=== PATIENT | female | born 1945 | race Caucasian/White ===

== ENCOUNTER 2016-12-01 15:55 | Emergency (ER) | payer OTHER, MEDICARE ==
[~2016-12-01] VITALS: Ht 154.9 cm; Wt 59.0 kg
[2016-12-01 15:55] VITALS: BP_SYST 176
[~2016-12-01 15:55] MED LIST: ALPHAGANP BOTH EYES; AMLO5TAB4 PO; ASPI81TA2 PO; ATREYE1 EACHEYE; CHOL400C8 PO; CLOP75TA2 PO; DORZ10DR13 OP; FLUT16SP24 NS; GELATIN PO; HYDR12.585 PO; LATA2.5D6 OP; LEVO100T9 PO; LORATIDINE PO; MECL-97 PO; OMEG1CAP18 PO; [UNRECOGNIZED DRUG - CODE] PO; [UNRECOGNIZED DRUG - OTHER] PO
[2016-12-01] MEDS: DIPH-TET-PERTUS Vaccine 0.5 ML VIAL (ADACEL) IM ONE (16:31)
[2016-12-01] MEDS: LIDOCAINE/EPI 1% 1:100000 20 ML VIAL IJ ONE (16:47)
[2016-12-01] MEDS: BACITRACIN 1 GM OINT TP ONE (18:00)
[2016-12-01 19:00] VITALS: BP_SYST 131
[2016-12-01] MEDS: ACETAMINOPHEN 325 MG TABLET PO ONE (19:09)
[2016-12-01] MEDS: CEPHALEXIN 500 MG CAPSULE PO ONE (19:09)
== END 2016-12-01 19:00 | disposition home or self-care (01) ==
LOC: SED 15:55
DX: S01.01XA Laceration without foreign body of scalp, initial encounter (principal); G80.9 Cerebral palsy, unspecified; I10 Essential (primary) hypertension; Z79.82 Long term (current) use of aspirin; Z88.5 Allergy status to narcotic agent; Z88.8 Allergy status to other drugs, medicaments and biological substances
CPT/HCPCS: 70450-TC; 90715; 99284

== ENCOUNTER 2019-04-21 14:47 | Emergency (ER) | payer OTHER, MEDICARE ==
[~2019-04-21] VITALS: Ht 160 cm; Wt 50.3 kg
[~2019-04-21 14:47] MED LIST changes: +ASPI-1155 PO; -ASPI81TA2 PO; -LATA2.5D6 OP; +XALEYE OP
[2019-04-21 15:02] VITALS: BP_SYST 99
[2019-04-21 15:48] LABS: BASOPHILS % (AUTO) 0.5 % (0.0-2.0); EOSINOPHILS # (AUTO) 0.1 K/uL (0.0-0.4); EOSINOPHILS % (AUTO) 1.4 % (0.0-4.0); HEMATOCRIT 27.8 % (36-48); HEMOGLOBIN 9.2 g/dL (12.0-16.0); LYMPHOCYTES # (AUTO) 0.5 K/uL (1.0-5.5); LYMPHOCYTES % (AUTO) 10.5 % (20.5-51.5); MEAN CORPUSCULAR HEMOGLOBIN 31 pg (27-31); MEAN CORPUSCULAR HGB CONC 33 % (32-36); MEAN CORPUSCULAR VOLUME 94 fL (79.0-98.0); MONOCYTES # (AUTO) 0.9 K/uL (0.0-1.0); MONOCYTES % (AUTO) 18.4 % (1.7-9.3); NEUTROPHILS # (AUTO) 3.3 K/uL (1.8-7.7); NEUTROPHILS % (AUTO) 69.2 % (40.0-70.0); PLATELET COUNT (AUTO) 324 K/uL (130-430); RED BLOOD CELL COUNT(AUTO) 2.96 MIL/uL (4.2-6.2); RED CELL DISTRIBUTION WIDTH 14.5 % (9.0-15.0); WHITE BLOOD COUNT (AUTO) 4.8 K/uL (4.8-10.8)
[2019-04-21 16:08] LABS: ANION GAP 3 (5-15); CALCIUM 9.2 mg/dL (8.4-11.0); CHLORIDE 107 mmol/L (98-107); CREATININE 1.11 mg/dL (0.55-1.30); GLUCOSE 103 mg/dL (70-99); POTASSIUM 4.3 mmol/L (3.5-5.1); SODIUM SERUM 137 mmol/L (136-145); UREA NITROGEN, BLOOD 38 mg/dL (8-21)
[2019-04-21 16:12] LABS: ALANINE AMINOTRANSFERASE 14 U/L (12-78); ALBUMIN 2.6 g/dL (3.4-4.8); AMYLASE 38 U/L (0-100); ASPARTATE AMINOTRANSFERASE 13 U/L (10-37); LIPASE 41 U/L (73-393); TOTAL BILIRUBIN 0.3 mg/dL (0.0-1.0)
[2019-04-21 16:35] LABS: PROTHROMBIN TIME 10.4 SECS (9.5-12.5)
[2019-04-21 18:00] VITALS: BP_SYST 117
== END 2019-04-21 18:00 | disposition home or self-care (01) ==
LOC: SED 14:47
DX: N39.0 Urinary tract infection, site not specified (principal); R19.7 Diarrhea, unspecified; I10 Essential (primary) hypertension; Z86.79 Personal history of other diseases of the circulatory system; Z88.5 Allergy status to narcotic agent; Z79.899 Other long term (current) drug therapy
CPT/HCPCS: 36415; 80053; 82150-TC; 83605; 83690-TC; 85025; 85610-TC; 85730-TC; 99284

== ENCOUNTER 2022-05-12 17:09 | Inpatient (IN) | payer OTHER, MEDICARE ==
[~2022-05-12] VITALS: Ht 152.4 cm; Wt 54.4 kg
[~2022-05-12 17:09] MED LIST changes: -ALPHAGANP BOTH EYES; -AMLO5TAB4 PO; -ASPI-1155 PO; -ATREYE1 EACHEYE; -CHOL400C8 PO; -CLOP75TA2 PO; -DORZ10DR13 OP; -FLUT16SP24 NS; -GELATIN PO; -LORATIDINE PO; -MECL-97 PO; -OMEG1CAP18 PO; -XALEYE OP; -[UNRECOGNIZED DRUG - CODE] PO; -[UNRECOGNIZED DRUG - OTHER] PO
--- NOTE | 2022-05-12 17:09 | NUR ---
PATIENT PRESENTS TO ER FROM [facility] DUE TO AN EPISODE OF COFFE GROUND EMESIS. PATINET WAS BIBA. PATIENT IS ALERT AND ORIENTED TO NAME AND LOCATION, BUT DOES NOT KNOW THE CORRECT DATE. RESPIRATIONS ARE WNL AND SYMMETRICAL. PATIENT IS ON 4L FROM PARAMEDICS. OXYGEN APPLIED VIA NC. STOMACH IS SOFT AND ROUNDED, ESAU SIGN OF TENDERNESS UPON PALPATION CA PERCUSSION. PATIENT CAN MOVE UPPER EXTREMEITIES, BUT LEGS ARE WEAK. PARAMEDICS STATE HER L SIDED WEAKNESS IS NORMAL AND IS HER BASELINE.
--- NOTE | 2022-05-12 17:09 | NUR ---
ER at bedside examining patient.
--- NOTE | 2022-05-12 17:09 | NUR ---
PATIENT HAS 18 GAUGE IV THAT WAS PLACE IN THE FIELD.
[2022-05-12 17:13] VITALS: BP_SYST 108
--- NOTE | 2022-05-12 17:24 | NUR ---
Patient to ER bed 1 to gown for evaluation. Side rails up. Report given to CHRISTIANO JOLLY
[2022-05-12 18:23] LABS: HEMATOCRIT 26.3 % (36-48); MEAN CORPUSCULAR VOLUME 90 fL (79.0-98.0); PLATELET COUNT (AUTO) 334 K/uL (130-430); RED BLOOD CELL COUNT(AUTO) 2.92 MIL/uL (4.2-6.2); RED CELL DISTRIBUTION WIDTH 15.3 % (9.0-15.0); WHITE BLOOD COUNT (AUTO) 28.6 K/uL (4.8-10.8)
[2022-05-12 18:29] LABS: ANION GAP 13 (5-15); CHLORIDE 103 mmol/L (98-107); CREATININE 3.02 mg/dL (0.55-1.30); GLUCOSE 183 mg/dL (70-99); POTASSIUM 4.5 mmol/L (3.5-5.1)
[2022-05-12 18:35] LABS: ALANINE AMINOTRANSFERASE 17 U/L (12-78); ALBUMIN 0.9 g/dL (3.4-4.8); ASPARTATE AMINOTRANSFERASE 14 U/L (10-37); INR 1.1 (0.8-1.2); TOTAL BILIRUBIN 0.3 mg/dL (0.0-1.0)
[2022-05-12 18:57] LABS: CALCIUM 6.7 mg/dL (8.4-11.0); UREA NITROGEN, BLOOD 117 mg/dL (8-21)
[2022-05-12 19:00] VITALS: BP_SYST 136
[2022-05-12 19:07] LABS: BAND % (MANUAL) 13 % (0-6); LYMPHOCYTES % (MANUAL) 3 % (20-46); METAMYELOCYTES % 1 % (0-0); MONOCYTES % (MANUAL) 8 % (0-11)
[2022-05-12] MEDS ORDERED: CALCIUM GLUCONATE 2 GM in NS 100 ML IV ONE (19:45)
[2022-05-12] MEDS ORDERED: NACL 0.9% 1,000 ML IV ONE ×2 (19:45)
[2022-05-12] MEDS ORDERED: cefTRIAXone 1 GM IVPB PREMIX 50 ML IV ONE (19:45)
[2022-05-12] MEDS ORDERED: CALCIUM GLUCONATE 1 GM/10 ML VIAL ONE (19:47)
[2022-05-12 20:00] VITALS: BP_SYST 136
[2022-05-12] MEDS ORDERED: NOR10 PO (20:28)
[2022-05-12] MEDS ORDERED: ASPI-1155 PO (20:29)
[2022-05-12] MEDS ORDERED: BRI.2% LEFT EYE (20:30)
[2022-05-12] MEDS ORDERED: CEFU250T85 PO (20:31)
[2022-05-12] MEDS ORDERED: DORZ10DR9 LEFT EYE (20:32)
[2022-05-12] MEDS ORDERED: XALEYE LEFT EYE (20:32)
[2022-05-12] MEDS ORDERED: SYN50 PO (20:33)
[2022-05-12] MEDS ORDERED: LOSA50TA3 PO (20:34)
[2022-05-12] MEDS ORDERED: ASCO500T20 PO (20:34)
[2022-05-12 21:00] VITALS: BP_SYST 95
--- NOTE | 2022-05-12 21:08 | NUR ---
Pt noted with large amt of black soft stool. Dr. Fenton brought to bedside and ordered STAT emergency transfusion of 2 units PRBC. Pt cleaned and Kowalski inserted per MD order. Pt noted confused, unable to answer questions at this time.
--- NOTE | 2022-05-12 21:39 | NUR ---
Started 1st unit emergency PRBC, no reaction noted within 1st 15 minutes. Pt taken to ICU bed 2 with 2 RN's and cardiac cath technician, report given to Willow, all questions answered.
[2022-05-12 22:00] VITALS: BP_SYST 97
[2022-05-12 22:47] LABS: BILIRUBIN,URINE NEGATIVE (NEGATIVE); COLOR,URINE YELLOW (YELLOW); GLUCOSE,URINE NEGATIVE (NEGATIVE); KETONES,URINE TRACE (NEGATIVE); LEUKOCYTE ESTERASE ,URINE 3+ (NEGATIVE); NITRITE, URINE NEGATIVE (NEGATIVE); PH,URINE 5.5 (5.0-8.0); PROTEIN URINE TRACE (NEGATIVE); UROBILINOGEN,URINE 0.2 (0.2-1.0)
[2022-05-12 22:48] LABS: BLOOD, URINE TRACE (NEGATIVE); CLARITY/URINE SLIGHTLY CLOUDY (CLEAR)
[2022-05-12 22:57] LABS: BACTERIA,URINE MODERATE /HPF (None Seen); MUCUS,URINE 1+ /LPF (None Seen); WBC,URINE 50-80 /HPF (0-3)
[2022-05-12 23:00] VITALS: BP_SYST 115
[2022-05-13] VITALS (24 sets, daily range): BP systolic 58–133
[2022-05-13] MEDS: PANTOPRAZOLE SODIUM 40 MG/VIAL (PROTONIX) IVP SCH ×2 (03:02→08:39)
[2022-05-13] MEDS: D5/0.45 NS 1,000 ML IV SCH ×4 (03:02→20:39)
--- NOTE | 2022-05-13 04:29 | NUR ---
CONSULTATION PAGED/CALLED Reason for Consultation: UPPER GI BLEED Person Who was Notified: RICKEY Consulting Physician: DR. PALACIO Sheep Killer Specialty: GI Ordering Physician: DR. ANDERSON Reason for Consultation: RENAL FAILURE Person Who was Notified: RICKEY Consulting Physician: DR. GONZALEZ Sheep Killer Specialty: NEPHROLOGY Ordering Physician: DR. ANDERSON
[2022-05-13 07:21] LABS: ANION GAP 13 (5-15); CHLORIDE 106 mmol/L (98-107); CREATININE 2.55 mg/dL (0.55-1.30); GLUCOSE 166 mg/dL (70-99); POTASSIUM 4.2 mmol/L (3.5-5.1)
[2022-05-13 07:25] LABS: BASOPHILS % (AUTO) 0.2 % (0.0-2.0); EOSINOPHILS % (AUTO) 0.2 % (0.0-4.0); HEMATOCRIT 28.1 % (36-48); MEAN CORPUSCULAR VOLUME 88 fL (79.0-98.0); MONOCYTES # (AUTO) 0.7 K/uL (0.0-1.0); MONOCYTES % (AUTO) 2.7 % (1.7-9.3); NEUTROPHILS # (AUTO) 23.4 K/uL (1.8-7.7); PLATELET COUNT (AUTO) 356 K/uL (130-430); RED BLOOD CELL COUNT(AUTO) 3.21 MIL/uL (4.2-6.2); RED CELL DISTRIBUTION WIDTH 14.8 % (9.0-15.0); WHITE BLOOD COUNT (AUTO) 25.1 K/uL (4.8-10.8)
[2022-05-13] MEDS: LEVOTHYROXINE SODIUM 0.05 MG TABLET PO SCH (07:30)
--- NOTE | 2022-05-13 08:00 | NUR ---
KEIRY MACK REGISTERED NURSE IS IN CHARGE OF THIS PATIENT/PT HAS GI OLD BLOOD STOOL, STOOL IS BLACK, SMELLING OF MELENA/PT FOLLOWS COMMANDS BUT MOSTLY MOANS, WILL ANSWER QUESTIONS THOUGH//PT [id number] BOLUSES DUE TO SEPPSIS//AWAIT DECISION ON SCOPE/AWAI H/H RESULTS FROM AM//MW
[2022-05-13 08:12] LABS: NEUTROPHILS % (AUTO) 92.9 % (40.0-70.0)
[2022-05-13] MEDS ORDERED: NACL 0.9% 1,000 ML IV ONE (08:30)
[2022-05-13] MEDS: BRIMONIDINE TARTRATE 0.2% 5 mL EYE DROPS LEFT EYE SCH ×3 (08:36→20:38)
[2022-05-13] MEDS: cefTRIAXone 1 GM in D5W 50 ML IV SCH (08:39)
[2022-05-13 09:00] LABS: CALCIUM 6.2 mg/dL (8.4-11.0); UREA NITROGEN, BLOOD 133 mg/dL (8-21)
[2022-05-13] MEDS ORDERED: metroNIDAZOLE 500 mg/NS 100 ML IV ONE (09:00)
[2022-05-13] MEDS ORDERED: DIATR MEGLU/DIATRIZ SOD 30 ML SOLUTION PO ONE (09:36)
[2022-05-13] MEDS: DORZOLAMIDE 2% OPHTHALMIC SOLN 5ML OP SCH ×3 (09:49→20:39)
[2022-05-13] MEDS ORDERED: CALCIUM GLUCONATE 1 GM/10 ML VIAL ONE (11:02)
[2022-05-13] MEDS ORDERED: CALCIUM GLUCONATE 2 GM in NS 100 ML IV ONE (12:00)
--- NOTE | 2022-05-13 12:00 | NUR ---
PT RECIOEVING BOLUSES, MULTIPLE IV LINES STARTED AND PICC LINE ORDERED//PT STILL HAVING BLACK STOOLS THOUGH ONLY SMALL AMOUNT LATELY//ALBUM,IN GIVEN TO PROTECT BP/PT HGB NOT POSTED YET//PT VS STABLE BUT PT STILL HAS INCIDENCES OF RAPID AFIB//DR PALACIO HAS DECIDED TO EGD PT, CONSENT IN CHART//PROCEDURE TO START AT 130PM-CONSENT GIVEN BY PT AND HE WAS UPDATED//MW
[2022-05-13] MEDS ORDERED: SIMETHICONE 40 MG/0.6 ML ML ONE (12:59)
[2022-05-13] MEDS ORDERED: MEPERIDINE 100 MG INJ. 100 MG/ML VIAL ONE (13:00)
[2022-05-13] MEDS ORDERED: fentaNYL CITRATE/PF 100 MCG/2 ML AMP ONE (13:00)
[2022-05-13] MEDS ORDERED: MIDAZOLAM HCL 5 MG/5 ML VIAL ONE (13:01)
[2022-05-13] MEDS ORDERED: ALBUMIN HUMAN 25% 100 ML IV ONE ×2 (13:32→17:14)
[2022-05-13] MEDS ORDERED: METOCLOPRAMIDE HCL 10 MG/2 ML VIAL ONE (14:01)
[2022-05-13] MEDS: PANTOPRAZOLE SODIUM 40 MG in NS 50 ML IV SCH ×3 (14:12→21:03)
[2022-05-13 14:48] LABS: BASOPHILS % (AUTO) 0.2 % (0.0-2.0); EOSINOPHILS # (AUTO) 0.1 K/uL (0.0-0.4); EOSINOPHILS % (AUTO) 0.2 % (0.0-4.0); LYMPHOCYTES # (AUTO) 1.2 K/uL (1.0-5.5); LYMPHOCYTES % (AUTO) 4.4 % (20.5-51.5); MEAN CORPUSCULAR VOLUME 88 fL (79.0-98.0); MONOCYTES # (AUTO) 1.2 K/uL (0.0-1.0); MONOCYTES % (AUTO) 4.5 % (1.7-9.3); NEUTROPHILS # (AUTO) 24.9 K/uL (1.8-7.7); PLATELET COUNT (AUTO) 201 K/uL (130-430); RED BLOOD CELL COUNT(AUTO) 2.39 MIL/uL (4.2-6.2); RED CELL DISTRIBUTION WIDTH 15.1 % (9.0-15.0); WHITE BLOOD COUNT (AUTO) 27.5 K/uL (4.8-10.8)
[2022-05-13 15:29] LABS: NEUTROPHILS % (AUTO) 90.7 % (40.0-70.0)
[2022-05-13] MEDS: metroNIDAZOLE 500 mg/NS 100 ML IV SCH ×2 (16:10→21:03)
[2022-05-13] MEDS: NOREPINEPHRINE BITARTRATE 4 MG in D5W 246 ML IV PRN ×2 (16:13→23:07)
[2022-05-13] MEDS ORDERED: MORPHINE 2 MG/ML INJ. SYRINGE ONE (17:13)
[2022-05-13] MEDS ORDERED: METOPROLOL TARTRATE 5 MG/5 ML VIAL ONE (17:15)
[2022-05-13] MEDS: METOCLOPRAMIDE HCL 10 MG/2 ML VIAL IVP SCH ×2 (17:17→23:34)
[2022-05-13] MEDS ORDERED: NALOXONE HCL 0.4 MG/ML AMP (NARCAN) IVP PRN (17:30)
[2022-05-13] MEDS ORDERED: MORPHINE 2 MG/ML INJ. SYRINGE IVP ONE (17:30)
[2022-05-13] MEDS ORDERED: METOPROLOL TARTRATE 5 MG/5 ML VIAL IVP PRN (17:30)
[2022-05-13] MEDS ORDERED: ALBUMIN HUMAN 25% 100 ML IV SCH (17:45)
--- NOTE | 2022-05-13 18:00 | NUR ---
1400 RECIEVED HGB RESULTS AND NEW CBC ORDERED-HGNB 30, HCT 10 FROM 5AM=SERIAL CBCS ORDERED Q6-PT STARTED ON LEVO, BOLUSES, ALBUMIN CONTINUE//MW
--- NOTE | 2022-05-13 18:00 | NUR ---
PT BP STABLE OFF LEVOPHED, PT STILL A AND O X2, WAS HERE, LEFT AFTER PT RAPID AFIB GOT CONTROLLED AT 5PM/PT STOOLS SMALL NOW, PER PREPARED TO CONSENT FOR ANY PROCEDURE//PT APPEARS IN ZERO DISTRESS//MW
[2022-05-13] MEDS: ALBUMIN HUMAN 25% 100 ML IV SCH (20:38)
[2022-05-13] MEDS: LATANOPROST 2.5 ML DROPS (XALATAN) LEFT EYE SCH (20:38)
[2022-05-14] VITALS (25 sets, daily range): BP systolic 95–147
[2022-05-14] MEDS: ALBUMIN HUMAN 25% 100 ML IV SCH ×2 (01:14→05:35)
[2022-05-14] MEDS: D5/0.45 NS 1,000 ML IV SCH ×4 (02:53→22:59)
[2022-05-14] MEDS: PANTOPRAZOLE SODIUM 40 MG in NS 50 ML IV SCH ×5 (02:53→22:58)
[2022-05-14] MEDS: metroNIDAZOLE 500 mg/NS 100 ML IV SCH ×3 (05:35→21:17)
[2022-05-14] MEDS: METOCLOPRAMIDE HCL 10 MG/2 ML VIAL IVP SCH ×4 (05:37→23:19)
--- NOTE | 2022-05-14 06:23 | NUR ---
CONSULTATION PAGED PRIORITY: ROUTINE REASON FOR CONSULTATION?:BLEEDING STOMACH ULCER WAS CONSULT CALLED:Y PERSON WHO WAS NOTIFIED:ISAÍAS CONSULTING PHYSICIAN:LEATHA SO WET MACHINE OPERATOR SPECIALTY:SURGEON WET MACHINE OPERATOR PHONE NUMBER:[phone]
[2022-05-14] MEDS: LEVOTHYROXINE SODIUM 0.05 MG TABLET PO SCH (06:58)
--- NOTE | 2022-05-14 08:00 | NUR ---
Received patient from NOC RN and discussed various tasks that need to be accomplished this AM. Patient continues to moan constantly and the only response that she gives is when asked if she is in pain, she says yes. RN rounded with Drs. Gray and Adriana this morning and tasks ordered were received and implemented as directed by MDs.
[2022-05-14] MEDS: cefTRIAXone 1 GM in D5W 50 ML IV SCH (08:27)
[2022-05-14] MEDS: DORZOLAMIDE 2% OPHTHALMIC SOLN 5ML OP SCH ×3 (08:28→21:17)
[2022-05-14] MEDS: LATANOPROST 2.5 ML DROPS (XALATAN) LEFT EYE SCH (08:32)
[2022-05-14] MEDS: BRIMONIDINE TARTRATE 0.2% 5 mL EYE DROPS LEFT EYE SCH ×3 (08:33→21:17)
--- NOTE | 2022-05-14 10:00 | NUR ---
Spoke with of patient and obtained consent for hospital records from [facility], consent for PICC line (reviewed again with and kiln charger), and EGD consented again for tomorrow. Called PICC RN Roberto and advised that consent was obtained; he indicated that he would come in and insert PICC today.
[2022-05-14 10:48] LABS: HEMATOCRIT 23.6 % (36-48); MEAN CORPUSCULAR VOLUME 86 fL (79.0-98.0); PLATELET COUNT (AUTO) 128 K/uL (130-430); RED BLOOD CELL COUNT(AUTO) 2.76 MIL/uL (4.2-6.2); RED CELL DISTRIBUTION WIDTH 14.9 % (9.0-15.0); WHITE BLOOD COUNT (AUTO) 17.1 K/uL (4.8-10.8)
[2022-05-14 10:54] LABS: ANION GAP 16 (5-15); CHLORIDE 109 mmol/L (98-107); CREATININE 1.93 mg/dL (0.55-1.30); GLUCOSE 127 mg/dL (70-99); POTASSIUM 3.3 mmol/L (3.5-5.1)
--- NOTE | 2022-05-14 12:00 | NUR ---
SPoke with Dr. Wright again; he was concerned that labs where not completed at this time. Contacted laundry laborer and blopo was draw and labs were taken right away. Patient has also been to CT scanner for CT of abdomen and Dr. Wright was made aware that exam was completed.
[2022-05-14 12:05] LABS: CALCIUM 5.8 mg/dL (8.4-11.0)
[2022-05-14 12:06] LABS: ALANINE AMINOTRANSFERASE 9 U/L (12-78); ASPARTATE AMINOTRANSFERASE 8 U/L (10-37); TOTAL BILIRUBIN 0.5 mg/dL (0.0-1.0); UREA NITROGEN, BLOOD 121 mg/dL (8-21)
[2022-05-14] MEDS ORDERED: CALCIUM GLUCONATE 1 GM/10 ML VIAL ONE (13:21)
[2022-05-14] MEDS ORDERED: CALCIUM GLUCONATE 2 GM in NS 100 ML IV ONE (13:30)
--- NOTE | 2022-05-14 14:00 | NUR ---
Spoke to Drs. Gray and Adriana regarding critical labs. Advised of Ca, BUN, CR, H and H, WBC and potassium. Order for Ca gluconate started and VS beginning to normalize. Otherwise, no sign or symptoms of acute distress or FLACC signs of pain at this time.
[2022-05-14 14:51] LABS: LIPASE 53 U/L (73-393); THYROID STIMULATING HORMONE 2.23 uIu/mL (0.36-3.74)
[2022-05-14 16:26] LABS: BAND % (MANUAL) 13 % (0-6); BASOPHILS % (MANUAL) 0 % (0-2); EOSINOPHILS % (MANUAL) 0 % (0-7); LYMPHOCYTES % (MANUAL) 11 % (20-46); METAMYELOCYTES % 1 % (0-0); MONOCYTES % (MANUAL) 3 % (0-11); MYELOCYTES % 1 % (0-0)
--- NOTE | 2022-05-14 16:27 | NUR ---
CONSULTATION PAGED PRIORITY: ROUTINE REASON FOR CONSULTATION?:STOMACH ULCER WAS CONSULT CALLED:ZACARIAS PERSON WHO WAS NOTIFIED:ANNABELLE CONSULTING PHYSICIAN:INDU TRIANA GEAR KEEPER SPECIALTY:SURGEON GEAR KEEPER PHONE NUMBER:[phone]
[2022-05-14 16:49] LABS: MEAN CORPUSCULAR VOLUME 87 fL (79.0-98.0); PLATELET COUNT (AUTO) 133 K/uL (130-430); RED BLOOD CELL COUNT(AUTO) 2.41 MIL/uL (4.2-6.2); RED CELL DISTRIBUTION WIDTH 15.4 % (9.0-15.0); WHITE BLOOD COUNT (AUTO) 20.3 K/uL (4.8-10.8)
--- NOTE | 2022-05-14 16:49 | NUR ---
CONSULTATION PAGED PRIORITY: ROUTINE REASON FOR CONSULTATION?:SEPSIS WAS CONSULT CALLED:ZACARIAS PERSON WHO WAS NOTIFIED:SARKIS CONSULTING PHYSICIAN:EVER FIGUEROA FISH TENDER SPECIALTY:INFECTIOUS DISEASE FISH TENDER PHONE NUMBER:[phone]
[2022-05-14 17:12] LABS: HEMATOCRIT 20.9 % (36-48)
--- NOTE | 2022-05-14 19:15 | NUR ---
Opening notes Received report from endorsing morning shift Sanaz for continuity of care. Patient is lying in bed with IVF D5 1/2 NS @ 150 mL/hr and protonix drip @ 10 mL/hr. Patient's vital signs blood pressure 95/33, heart rate 96, respirations 16, and SPO2 100% on nasal cannula 2L. Kowalski catheter is in place, draining to gravity. Bed is locked and in lowest position, call light button within reach, fall and safety precautions is in place.
[2022-05-15] VITALS (18 sets, daily range): BP systolic 85–148
[2022-05-15 00:21] LABS: BAND % (MANUAL) 22 % (0-6); EOSINOPHILS % (MANUAL) 3 % (0-7); LYMPHOCYTES % (MANUAL) 3 % (20-46); METAMYELOCYTES % 2 % (0-0); MONOCYTES % (MANUAL) 3 % (0-11); MYELOCYTES % 1 % (0-0)
[2022-05-15] MEDS ORDERED: NOREPINEPHRINE 4 MG/4 ML VIAL IV ONE ×4 (00:29→11:43)
[2022-05-15] MEDS: NOREPINEPHRINE BITARTRATE 4 MG in D5W 246 ML IV PRN (00:29)
[2022-05-15] MEDS: PANTOPRAZOLE SODIUM 40 MG in NS 50 ML IV SCH ×4 (04:04→20:42)
[2022-05-15] MEDS: D5/0.45 NS 1,000 ML IV SCH ×3 (05:43→21:03)
[2022-05-15] MEDS: metroNIDAZOLE 500 mg/NS 100 ML IV SCH ×3 (05:43→21:33)
[2022-05-15] MEDS: METOCLOPRAMIDE HCL 10 MG/2 ML VIAL IVP SCH ×4 (05:43→23:59)
[2022-05-15] MEDS: LEVOTHYROXINE SODIUM 0.05 MG TABLET PO SCH (06:41)
--- NOTE | 2022-05-15 07:30 | NUR ---
Report received from outgoing RN. I immediately dispatched Embermy tech to get hold of Michael Sanford, the assistant golf professional surgeon. I was informed that DR Valencia was not called last night. Dr. Sanford is aware and will see patient shortly.
[2022-05-15] MEDS ORDERED: fentaNYL CITRATE/PF 100 MCG/2 ML AMP ONE (07:52)
[2022-05-15] MEDS ORDERED: MIDAZOLAM HCL 5 MG/5 ML VIAL ONE (07:52)
[2022-05-15] MEDS ORDERED: SIMETHICONE 40 MG/0.6 ML ML ONE (07:52)
[2022-05-15] MEDS ORDERED: OCTREOTIDE ACETATE 50 MCG in NS 50 ML IV ONE (08:30)
[2022-05-15] MEDS ORDERED: PHENYLEPHRINE HCL 100 MG in NS 240 ML IV PRN (08:45)
[2022-05-15] MEDS: BRIMONIDINE TARTRATE 0.2% 5 mL EYE DROPS LEFT EYE SCH ×3 (09:00→20:44)
--- NOTE | 2022-05-15 09:30 | NUR ---
Reported to Dr Powers the critical ABG. Orders noted and carried out.
[2022-05-15] MEDS ORDERED: SODIUM BICARBONATE 8.4% JECT 50 MEQ/50 ML SYRINGE IVP ONE (10:30)
[2022-05-15 10:47] LABS: BASOPHILS # (AUTO) 0.1 K/uL (0.0-0.2); BASOPHILS % (AUTO) 0.4 % (0.0-2.0); EOSINOPHILS % (AUTO) 0.2 % (0.0-4.0); LYMPHOCYTES % (AUTO) 6.1 % (20.5-51.5); MEAN CORPUSCULAR VOLUME 90 fL (79.0-98.0); MONOCYTES # (AUTO) 0.2 K/uL (0.0-1.0); MONOCYTES % (AUTO) 1.1 % (1.7-9.3); NEUTROPHILS # (AUTO) 15.8 K/uL (1.8-7.7); NEUTROPHILS % (AUTO) 92.2 % (40.0-70.0); PLATELET COUNT (AUTO) 57 K/uL (130-430); RED BLOOD CELL COUNT(AUTO) 2.04 MIL/uL (4.2-6.2); RED CELL DISTRIBUTION WIDTH 14.7 % (9.0-15.0); WHITE BLOOD COUNT (AUTO) 17.1 K/uL (4.8-10.8)
[2022-05-15] MEDS ORDERED: cefTRIAXone 1 GM IVPB PREMIX 50 ML IV SCH (11:00)
[2022-05-15] MEDS: SODIUM BICARBONATE 8.4% JECT 150 MEQ in D5W 1,000 ML IVP SCH ×2 (11:30→20:43)
[2022-05-15 11:41] LABS: HEMATOCRIT 18.3 % (36-48)
[2022-05-15 12:14] LABS: INR 2.5 (0.8-1.2); PROTHROMBIN TIME 23.8 SECS (9.5-12.5)
[2022-05-15] MEDS ORDERED: ALBUMIN HUMAN 25% 200 ML IV ONE ×2 (12:23→12:30)
[2022-05-15] MEDS ORDERED: NACL 0.9% 1,000 ML IV ONE (12:30)
--- NOTE | 2022-05-15 14:47 | NUR ---
1335 PULLED ET TUBE FROM 24CM TO 22 CM. NIKKIE JUNG HEARD, VOLUMES ACHIEVED. RN AWARE. Addendum: 05/15/22 at 1448 by Ann Parham RT Amended: Links added.
[2022-05-15 15:32] LABS: EOSINOPHILS % (AUTO) 0.1 % (0.0-4.0); LYMPHOCYTES # (AUTO) 0.4 K/uL (1.0-5.5); MONOCYTES # (AUTO) 0.5 K/uL (0.0-1.0); NEUTROPHILS # (AUTO) 12.2 K/uL (1.8-7.7); WHITE BLOOD COUNT (AUTO) 13.1 K/uL (4.8-10.8)
[2022-05-15 15:41] LABS: BASOPHILS % (AUTO) 0.2 % (0.0-2.0); LYMPHOCYTES % (AUTO) 2.7 % (20.5-51.5); MEAN CORPUSCULAR VOLUME 91 fL (79.0-98.0)
--- NOTE | 2022-05-15 15:57 | NUR ---
0810 ASSISTED IN CODE BLUE AND INTUBATING PT. CO2 COLOR NIKKIE MANCIA PT PLACED ON VENT PER DR. MO. Addendum: 05/15/22 at 1558 by Ann Parham RT Amended: Links added.
[2022-05-15 16:00] LABS: FIBRINOGEN 71 mg/dL (200-400)
[2022-05-15 16:15] LABS: RED BLOOD CELL COUNT(AUTO) 1.16 MIL/uL (4.2-6.2)
[2022-05-15 16:18] LABS: HEMATOCRIT 10.5 % (36-48); PLATELET COUNT (AUTO) 31 K/uL (130-430)
[2022-05-15] MEDS: OCTREOTIDE ACETATE 500 MCG in NS 99.5 ML IV SCH (16:26)
[2022-05-15] MEDS: DORZOLAMIDE 2% OPHTHALMIC SOLN 5ML OP SCH ×3 (16:31→20:44)
[2022-05-15] MEDS: PIPERACILLIN/TAZO 2.25G/DEX-IS 50 ML IV SCH ×3 (16:33→23:59)
[2022-05-15] MEDS: LATANOPROST 2.5 ML DROPS (XALATAN) LEFT EYE SCH (16:37)
--- NOTE | 2022-05-15 16:37 | NUR ---
NOTIFIED BY LAB OF CRITICAL HCT AT 10.5 AND PLT OF 31. INFORMED MATA JETT AND PRIMARY RN GEORGINA.
[2022-05-15] MEDS ORDERED: FUROSEMIDE 20 MG/2 ML VIAL IVP ONE (19:30)
--- NOTE | 2022-05-15 19:45 | NUR ---
Received report from PM shift RN, and assumed patient care.
--- NOTE | 2022-05-15 20:00 | NUR ---
Patient's axillary temperature reads 93F and temporal reads 95F, warming measures are applied on patient, and will recheck temperature throughout the shift. No other complications noted at the moment, will reinforce if needed throughout the shift.
[2022-05-15] MEDS: VASOPRESSIN 20 UNITS in NS 99 ML IV PRN (20:42)
[2022-05-15] MEDS ORDERED: VASOPRESSIN 20 UNITS/ML VIAL IV ONE (20:43)
--- NOTE | 2022-05-15 21:30 | NUR ---
Performed CHG bath on patient, changed linens, and patient was able to tolerate the changes, no complications noted during the process. Will reinforce if needed throughout the shift.
--- NOTE | 2022-05-15 22:15 | NUR ---
Spoke to Mary Jo, from lab regarding updates about patient's blood order, no blood orders ready at the moment, and will call back to inform about readiness of the blood product. director child abuse therapy is aware, no complications noted at the moment. Will reinforce if needed throughout the shift.
[2022-05-15] MEDS: NOREPINEPHRINE BITARTRATE 8 MG in D5W 242 ML IV PRN (22:41)
--- NOTE | 2022-05-15 23:52 | NUR ---
Received critical lab result (please see EMR for further details), will inform MD about results GEOVANNI. No additional orders noted at the moment.
[2022-05-16] VITALS (32 sets, daily range): BP systolic 87–176
--- NOTE | 2022-05-16 00:20 | NUR ---
Spoke to Dr. Powers about the critical lab results of Hgb, MD is aware of patient ongoing with blood administration at the moment, and will get another lab value post blood transfusions. No additional orders noted at the moment, and provided nursing updates about current drips, will reinforce if needed throughout the shift.
[2022-05-16] MEDS: D5/0.45 NS 1,000 ML IV SCH ×3 (00:56→15:16)
[2022-05-16] MEDS: VASOPRESSIN 20 UNITS in NS 99 ML IV PRN ×2 (02:04→14:41)
[2022-05-16] MEDS ORDERED: VASOPRESSIN 20 UNITS/ML VIAL IV ONE (02:06)
[2022-05-16] MEDS: NOREPINEPHRINE BITARTRATE 8 MG in D5W 242 ML IV PRN (02:51)
--- NOTE | 2022-05-16 03:00 | NUR ---
Patient had a medium loose dark melena bowel movement, changed patient's linens, and tolerated the big turns and clean. No additional complications noted at the moment, will reinforce if needed throughout the shift.
[2022-05-16] MEDS: OCTREOTIDE ACETATE 500 MCG in NS 99.5 ML IV SCH (04:01)
[2022-05-16] MEDS: PANTOPRAZOLE SODIUM 40 MG in NS 50 ML IV SCH ×6 (04:14→20:26)
[2022-05-16] MEDS: SODIUM BICARBONATE 8.4% JECT 150 MEQ in D5W 1,000 ML IVP SCH ×2 (04:57→15:16)
[2022-05-16] MEDS: metroNIDAZOLE 500 mg/NS 100 ML IV SCH ×3 (05:52→21:50)
[2022-05-16] MEDS: PIPERACILLIN/TAZO 2.25G/DEX-IS 50 ML IV SCH (05:52)
[2022-05-16] MEDS: METOCLOPRAMIDE HCL 10 MG/2 ML VIAL IVP SCH ×3 (06:00→18:29)
--- NOTE | 2022-05-16 06:00 | NUR ---
Dr. Sanford called for condition updates, MD is aware of patient currently being transfused with PRBCs 3/4 at the moment, and pending platelet transfusion. No additional orders noted at the moment, MD is aware of most current lab values and will reinforce if needed throughout the shift.
[2022-05-16] MEDS: LEVOTHYROXINE SODIUM 0.05 MG TABLET PO SCH (06:14)
[2022-05-16 06:38] LABS: PROTHROMBIN TIME 19.7 SECS (9.5-12.5)
[2022-05-16 07:15] LABS: ALBUMIN 2.1 g/dL (3.4-4.8); ANION GAP 14 (5-15); CHLORIDE 102 mmol/L (98-107); CREATININE 2.18 mg/dL (0.55-1.30); TOTAL BILIRUBIN 0.5 mg/dL (0.0-1.0); UREA NITROGEN, BLOOD 91 mg/dL (8-21)
--- NOTE | 2022-05-16 08:30 | NUR ---
received critical lab values from nathan stated g/c=402, calcium 4.6, bun 91, creat=2.18.
[2022-05-16 08:37] LABS: ASPARTATE AMINOTRANSFERASE 87 U/L (10-37); CALCIUM < 5.0 mg/dL (8.4-11.0); GLUCOSE 402 mg/dL (70-99)
[2022-05-16 08:48] LABS: BASOPHILS % (AUTO) 0.1 % (0.0-2.0); EOSINOPHILS % (AUTO) 0.1 % (0.0-4.0); LYMPHOCYTES # (AUTO) 0.3 K/uL (1.0-5.5); MEAN CORPUSCULAR VOLUME 83 fL (79.0-98.0); MONOCYTES # (AUTO) 0.2 K/uL (0.0-1.0); MONOCYTES % (AUTO) 1.2 % (1.7-9.3); NEUTROPHILS # (AUTO) 13.6 K/uL (1.8-7.7); RED BLOOD CELL COUNT(AUTO) 2.58 MIL/uL (4.2-6.2); RED CELL DISTRIBUTION WIDTH 16.4 % (9.0-15.0); WHITE BLOOD COUNT (AUTO) 14.1 K/uL (4.8-10.8)
[2022-05-16 09:12] LABS: ALANINE AMINOTRANSFERASE 36 U/L (12-78)
--- NOTE | 2022-05-16 09:30 | NUR ---
called Dr Gutiérrez to report critical labs spoke with Nettie from exchange stated she will verbalized message to for call back.
[2022-05-16 09:41] LABS: HEMATOCRIT 21.5 % (36-48); PLATELET COUNT (AUTO) 44 K/uL (130-430)
[2022-05-16 09:43] LABS: NEUTROPHILS % (AUTO) 96.6 % (40.0-70.0)
[2022-05-16] MEDS ORDERED: PANTOPRAZOLE SODIUM 40 MG/VIAL (PROTONIX) ONE (10:18)
[2022-05-16] MEDS: BRIMONIDINE TARTRATE 0.2% 5 mL EYE DROPS LEFT EYE SCH ×3 (10:20→20:27)
[2022-05-16] MEDS: DORZOLAMIDE 2% OPHTHALMIC SOLN 5ML OP SCH ×3 (10:21→20:27)
--- NOTE | 2022-05-16 12:00 | NUR ---
spoke with Dr Dhillon to give update on pt. reported critical values to him stated to call primary dr to get new orders for pt.
--- NOTE | 2022-05-16 12:10 | NUR ---
RT NOTES Dr Powers roundprakash now, made aware of pt's PIP in the mid 30s. stated "its ok, with pt's current condition, there maybe some edema going on".
[2022-05-16] MEDS ORDERED: DEXTROSE 50% JECT 50 ML DISP.SYRIN IVP PRN (12:15)
[2022-05-16] MEDS ORDERED: D5W 1,000 ML IV PRN (12:15)
[2022-05-16] MEDS ORDERED: GLUCOSE (DEXTROSE) ORAL GEL -Adults PO PRN (12:15)
[2022-05-16 12:17] LABS: BASOPHILS % (MANUAL) 0 % (0-2)
[2022-05-16] MEDS ORDERED: CEFEPIME 2 GM in D5W 100 ML IV SCH (13:00)
[2022-05-16] MEDS: CEFEPIME 2 GM in NS 100 ML IV SCH (13:32)
[2022-05-16] MEDS ORDERED: CALCIUM GLUCONATE 1 GM in NS 100 ML IV ONE (14:00)
[2022-05-16] MEDS: KCL 20 mEq in 100 mL (PREMIX) 100 ML IV SCH ×2 (14:30→17:28)
[2022-05-16] MEDS ORDERED: *TPN PER PHARMACY XX PRN (15:00)
[2022-05-16] MEDS: INSULIN REGULAR, HUMAN 100 UNITS/ML, 3 ML VIAL (humuLIN R) SUBCUT PRN (15:59)
[2022-05-16] MEDS ORDERED: CALCIUM CHLORIDE 1 GM in NS 100 ML IV ONE (16:00)
[2022-05-16] MEDS ORDERED: CALCIUM GLUCONATE 1 GM/10 ML VIAL ONE (17:30)
[2022-05-16 19:01] LABS: HEMATOCRIT 36.1 % (36-48)
--- NOTE | 2022-05-16 19:10 | NUR ---
Received report from SHANAE Rosario and assumed patient care.
[2022-05-16] MEDS: LATANOPROST 2.5 ML DROPS (XALATAN) LEFT EYE SCH (20:27)
--- NOTE | 2022-05-16 21:00 | NUR ---
Dr. Sanford called for condition updates, MD is aware of pending lab results for HGB, and coags result. According to MD, once lab results if hgb < 9, transfuse 2 PRBCs, if plt < 82721, transfuse 1 PLT (please see additional orders for further details). MD is aware of patient's current situation, and clarified if patient will be proceeding with surgery on patient, per MD will correct H&H and coags before progressing towards surgery. No additional orders noted at the moment, per MD no need to call MD regarding lab result and proceed with standing order.
--- NOTE | 2022-05-16 21:10 | NUR ---
Spoke to Shana, Blood bank and requested for FFP for patient. Per Shana, she is not able to accommodate at the moment due to short staff in the lab, and will call back once blood is ready for machine operator picker. Will call back again for further instructions for blood machine operator picker.
[2022-05-16 22:02] LABS: INR 1.8 (0.8-1.2); PROTHROMBIN TIME 17.8 SECS (9.5-12.5)
--- NOTE | 2022-05-16 23:30 | NUR ---
Performed CHG bath on patient, patient had a bowel movement, patient tolerated the big turns and no other complications noted at the moment. Will reinforce if needed throughout the shift.
[2022-05-17] VITALS (32 sets, daily range): BP systolic 101–182
[2022-05-17] MEDS: METOCLOPRAMIDE HCL 10 MG/2 ML VIAL IVP SCH ×4 (00:04→18:49)
[2022-05-17] MEDS: SODIUM BICARBONATE 8.4% JECT 150 MEQ in D5W 1,000 ML IVP SCH ×2 (00:04→09:30)
[2022-05-17] MEDS: OCTREOTIDE ACETATE 500 MCG in NS 99.5 ML IV SCH (00:05)
[2022-05-17] MEDS: PANTOPRAZOLE SODIUM 40 MG in NS 50 ML IV SCH ×5 (00:05→20:04)
--- NOTE | 2022-05-17 04:20 | NUR ---
Dr. Sanford called for condition updates, MD is aware of most current lab results and that the FFP that MD ordered is currently running at the moment, no additional orders noted at the moment and will reinforce if needed throughout the shift.
[2022-05-17] MEDS: metroNIDAZOLE 500 mg/NS 100 ML IV SCH ×3 (05:09→22:36)
[2022-05-17] MEDS: LEVOTHYROXINE SODIUM 0.05 MG TABLET PO SCH (06:24)
--- NOTE | 2022-05-17 06:24 | NUR ---
Patient had a bowel movement, cleaned patient up, changed linens, patient tolerated the big turns. No complications noted during the cleaning part, will reinforce if needed throughout the shift.
[2022-05-17 06:57] LABS: INR 1.5 (0.8-1.2)
[2022-05-17 07:29] LABS: ALANINE AMINOTRANSFERASE 24 U/L (12-78); ALBUMIN 1.6 g/dL (3.4-4.8); ANION GAP 13 (5-15); ASPARTATE AMINOTRANSFERASE 61 U/L (10-37); CHLORIDE 99 mmol/L (98-107); CREATININE 2.62 mg/dL (0.55-1.30); GLUCOSE 117 mg/dL (70-99); PHOSPHORUS 2.8 mg/dL (2.7-4.5); POTASSIUM 3.8 mmol/L (3.5-5.1); TOTAL BILIRUBIN 0.3 mg/dL (0.0-1.0); UREA NITROGEN, BLOOD 96 mg/dL (8-21)
[2022-05-17 08:08] LABS: CALCIUM 5.3 mg/dL (8.4-11.0)
[2022-05-17 08:41] LABS: HEMATOCRIT 28.9 % (36-48)
[2022-05-17] MEDS: PHYTONADIONE 10 MG/ML AMP SUBCUT SCH (09:11)
[2022-05-17] MEDS: BRIMONIDINE TARTRATE 0.2% 5 mL EYE DROPS LEFT EYE SCH ×3 (09:12→20:06)
[2022-05-17] MEDS: DORZOLAMIDE 2% OPHTHALMIC SOLN 5ML OP SCH ×3 (09:12→20:06)
[2022-05-17 09:38] LABS: TRIGLYCERIDES 56 mg/dL (30-150)
[2022-05-17] MEDS ORDERED: PANTOPRAZOLE SODIUM 40 MG/VIAL (PROTONIX) ONE (11:33)
[2022-05-17 12:14] LABS: BASOPHILS # (AUTO) 0.1 K/uL (0.0-0.2); BASOPHILS % (AUTO) 0.5 % (0.0-2.0); EOSINOPHILS % (AUTO) 0.2 % (0.0-4.0); HEMATOCRIT 29.9 % (36-48); LYMPHOCYTES # (AUTO) 0.5 K/uL (1.0-5.5); LYMPHOCYTES % (AUTO) 2.8 % (20.5-51.5); MEAN CORPUSCULAR VOLUME 83 fL (79.0-98.0); MONOCYTES # (AUTO) 0.4 K/uL (0.0-1.0); MONOCYTES % (AUTO) 2.1 % (1.7-9.3); NEUTROPHILS # (AUTO) 17.6 K/uL (1.8-7.7); NEUTROPHILS % (AUTO) 94.4 % (40.0-70.0); RED BLOOD CELL COUNT(AUTO) 3.59 MIL/uL (4.2-6.2); WHITE BLOOD COUNT (AUTO) 18.7 K/uL (4.8-10.8)
[2022-05-17] MEDS: CEFEPIME 2 GM in NS 100 ML IV SCH (12:21)
[2022-05-17 12:23] LABS: PLATELET COUNT (AUTO) 45 K/uL (130-430)
--- NOTE | 2022-05-17 12:24 | NUR ---
RT NOTES PEEP to [address] Powers's order. RN made aware.
[2022-05-17] MEDS ORDERED: FUROSEMIDE 40 MG/4 ML VIAL IVP ONE (12:45)
[2022-05-17] MEDS ORDERED: FUROSEMIDE 40 MG/4 ML VIAL ONE (12:50)
--- NOTE | 2022-05-17 13:04 | NUR ---
DR STEWART AT BEDSIDE TO ASSESS PT. PER DR STEWART STATED TO START TUBE FEEDING NEPRO@25ML/HR GOAL, HOLD IF TUBE FEEDING RESIDUAL IS >100ML.
[2022-05-17] MEDS: LORazepam 2 MG/ML VIAL IVP PRN (13:53)
[2022-05-17] MEDS ORDERED: CALCIUM GLUCONATE 1 GM in NS 100 ML IV ONE (14:15)
[2022-05-17] MEDS ORDERED: TPN CENTRAL 0.0001 ML, SODIUM ACETATE 40 MEQ, POTASSIUM CHLORIDE 20 MEQ, K PHOS 9 MM, C... IV SCH ×20 (16:30→21:00)
[2022-05-17] MEDS ORDERED: OCTREOTIDE ACETATE 500 MCG in NS 97.5 ML IV SCH (16:33)
--- NOTE | 2022-05-17 17:43 | NUR ---
Dietitian Recommendations * Continue Nepro @ 25 mL/hr (goal) x 24hr; no free water flush per MD - Provides daily: 1080 kcals, 49g protein, 436mL free water * If patient tolerating EN at goal, hold PPN to avoid overfeeding * Rec adjust PN order to better meet pt's nutritional needs: D20 AA4.5% @ 55mL/hr + 20%ILE @ 250mL/day - Provides daily 1635 kcals, 59g protein, 1320mL fluids * If GI function improves, consult RD for new enteral/diet recommendations Please refer to nutrition assessment for details, thanks! CC, MPH, RDN
--- NOTE | 2022-05-17 19:10 | NUR ---
Received report from AM shift RN, and assumed patient care.
--- NOTE | 2022-05-17 19:47 | NUR ---
Dr. Sanford called for condition updates, provided nursing updates, MD is aware of FFP transfusing at the moment which is 1/2 still pending platelet & the other FFP, no additional orders noted at the moment, will reinforce if needed throughout the shift.
[2022-05-17] MEDS ORDERED: DESMOPRESSIN ACETATE IV ONE (20:00)
[2022-05-17] MEDS: OCTREOTIDE ACETATE 500 MCG in NS 97.5 ML IV SCH (20:03)
[2022-05-17] MEDS: LATANOPROST 2.5 ML DROPS (XALATAN) LEFT EYE SCH (20:06)
[2022-05-18] VITALS (32 sets, daily range): BP systolic 115–180
[2022-05-18] MEDS: METOCLOPRAMIDE HCL 10 MG/2 ML VIAL IVP SCH ×5 (00:15→23:51)
[2022-05-18] MEDS: INSULIN REGULAR, HUMAN 100 UNITS/ML, 3 ML VIAL (humuLIN R) SUBCUT PRN (00:19)
[2022-05-18] MEDS: SODIUM BICARBONATE 8.4% JECT 150 MEQ in D5W 1,000 ML IVP SCH (01:04)
[2022-05-18] MEDS: PANTOPRAZOLE SODIUM 40 MG in NS 50 ML IV SCH ×5 (01:07→21:00)
[2022-05-18] MEDS: metroNIDAZOLE 500 mg/NS 100 ML IV SCH ×3 (05:30→21:02)
[2022-05-18] MEDS: LEVOTHYROXINE SODIUM 0.05 MG TABLET PO SCH (06:43)
[2022-05-18 08:25] LABS: ALANINE AMINOTRANSFERASE 18 U/L (12-78); ALBUMIN 1.5 g/dL (3.4-4.8); ANION GAP 11 (5-15); ASPARTATE AMINOTRANSFERASE 39 U/L (10-37); CHLORIDE 96 mmol/L (98-107); CREATININE 3.06 mg/dL (0.55-1.30); GLUCOSE 377 mg/dL (70-99); POTASSIUM 3.3 mmol/L (3.5-5.1); TOTAL BILIRUBIN 0.4 mg/dL (0.0-1.0); UREA NITROGEN, BLOOD 96 mg/dL (8-21)
[2022-05-18 08:31] LABS: INR 1.3 (0.8-1.2); PROTHROMBIN TIME 12.6 SECS (9.5-12.5)
[2022-05-18 08:32] LABS: BASOPHILS # (AUTO) 0.1 K/uL (0.0-0.2); BASOPHILS % (AUTO) 0.3 % (0.0-2.0); EOSINOPHILS # (AUTO) 0.1 K/uL (0.0-0.4); EOSINOPHILS % (AUTO) 0.6 % (0.0-4.0); HEMATOCRIT 29.8 % (36-48); LYMPHOCYTES # (AUTO) 0.5 K/uL (1.0-5.5); LYMPHOCYTES % (AUTO) 2.5 % (20.5-51.5); MEAN CORPUSCULAR VOLUME 85 fL (79.0-98.0); MONOCYTES # (AUTO) 0.3 K/uL (0.0-1.0); MONOCYTES % (AUTO) 1.7 % (1.7-9.3); NEUTROPHILS # (AUTO) 18.1 K/uL (1.8-7.7); NEUTROPHILS % (AUTO) 94.9 % (40.0-70.0); PLATELET COUNT (AUTO) 90 K/uL (130-430); RED BLOOD CELL COUNT(AUTO) 3.53 MIL/uL (4.2-6.2); WHITE BLOOD COUNT (AUTO) 19.1 K/uL (4.8-10.8)
[2022-05-18 09:37] LABS: CALCIUM 5.7 mg/dL (8.4-11.0)
[2022-05-18] MEDS: BRIMONIDINE TARTRATE 0.2% 5 mL EYE DROPS LEFT EYE SCH ×3 (10:23→20:52)
[2022-05-18] MEDS: DORZOLAMIDE 2% OPHTHALMIC SOLN 5ML OP SCH ×3 (10:23→20:52)
[2022-05-18] MEDS: PHYTONADIONE 10 MG/ML AMP SUBCUT SCH (10:26)
[2022-05-18] MEDS ORDERED: JECT IVP SCH (11:30)
[2022-05-18] MEDS ORDERED: SODIUM BICARBONATE 8.4% IVP SCH (11:30)
[2022-05-18] MEDS ORDERED: D5W IVP SCH (11:30)
[2022-05-18] MEDS: LORazepam 2 MG/ML VIAL IVP PRN (11:34)
[2022-05-18 11:37] LABS: PHOSPHORUS 3.5 mg/dL (2.7-4.5)
[2022-05-18] MEDS ORDERED: PANTOPRAZOLE SODIUM 40 MG/VIAL (PROTONIX) ONE (11:52)
--- NOTE | 2022-05-18 13:33 | NUR ---
dialysis nurse completed service for pt, total Liters out was 2. pt tolerated well, no sign sof acute distress noted at this time.
[2022-05-18] MEDS: MEROPENEM 500 MG in NS 50 ML IV SCH ×2 (15:06→21:00)
--- NOTE | 2022-05-18 16:46 | NUR ---
DR HARRELL AT BEDSIDE ROUNDING ON PT. STATED OK TO D/C FLUIDS FOR PT, CONTINUE TPN UNTIL TUBE FEEDINGS ARE WELL TOLERATED. ALSO CHANGED VENT SETTINGS TO AC 20, AND FIO2 TO 60%
[2022-05-18] MEDS ORDERED: FUROSEMIDE 20 MG/2 ML VIAL IVP ONE (17:00)
[2022-05-18] MEDS: OCTREOTIDE ACETATE 500 MCG in NS 97.5 ML IV SCH (17:21)
--- NOTE | 2022-05-18 19:10 | NUR ---
Received report from AM shift RN, and assumed patient care.
--- NOTE | 2022-05-18 20:12 | NUR ---
Dr. Hughes rounded at bedside, MD is aware of patient's most current conditions. MD is aware of abnormal electrolytes, MD will place an order for low potassium, will wait for [facility] to verify order. No additional orders noted at the moment, and will reinforce if needed throughout the shift.
[2022-05-18] MEDS ORDERED: POTASSIUM CHLORIDE 20 MEQ/PKT PACKET NG ONE (20:15)
[2022-05-18] MEDS: LATANOPROST 2.5 ML DROPS (XALATAN) LEFT EYE SCH (20:54)
[2022-05-18] MEDS ORDERED: TPN CENTRAL IV SCH ×10 (21:00)
[2022-05-18] MEDS ORDERED: K PHOS IV SCH ×10 (21:00)
[2022-05-18] MEDS ORDERED: SODIUM CHLORIDE IV SCH ×10 (21:00)
[2022-05-18] MEDS ORDERED: [UNRECOGNIZED DRUG - OTHER] IV SCH ×10 (21:00)
[2022-05-18] MEDS ORDERED: POTASSIUM CHLORIDE IV SCH ×10 (21:00)
[2022-05-19] VITALS (31 sets, daily range): BP systolic 100–166
--- NOTE | 2022-05-19 00:10 | NUR ---
Dr. Sanford called for condition updates, provided nursing updates and MD is aware of most current lab results. Per Dr. Sanford MD wants to change TPN order from 42ml/hr to 25ml/hr, unable to change rate order on med[employer] order section, charge authorizer (Silver) is aware, no additional orders noted at the moment and will reinforce if needed throughout the shift.
[2022-05-19] MEDS: PANTOPRAZOLE SODIUM 40 MG in NS 50 ML IV SCH ×5 (03:04→22:08)
--- NOTE | 2022-05-19 04:30 | NUR ---
Performed CHG bath on patient, tolerated the turns and showed no complications during the big turns. Will reinforce if needed throughout the shift.
[2022-05-19] MEDS: MEROPENEM 500 MG in NS 50 ML IV SCH ×3 (05:41→21:26)
[2022-05-19] MEDS: METOCLOPRAMIDE HCL 10 MG/2 ML VIAL IVP SCH ×4 (05:41→23:29)
[2022-05-19] MEDS: metroNIDAZOLE 500 mg/NS 100 ML IV SCH ×3 (05:43→22:08)
[2022-05-19 07:01] LABS: BASOPHILS % (AUTO) 0.2 % (0.0-2.0); EOSINOPHILS # (AUTO) 0.2 K/uL (0.0-0.4); EOSINOPHILS % (AUTO) 1.1 % (0.0-4.0); HEMATOCRIT 30.4 % (36-48); LYMPHOCYTES # (AUTO) 0.5 K/uL (1.0-5.5); LYMPHOCYTES % (AUTO) 2.3 % (20.5-51.5); MEAN CORPUSCULAR VOLUME 86 fL (79.0-98.0); MONOCYTES # (AUTO) 0.5 K/uL (0.0-1.0); MONOCYTES % (AUTO) 2.5 % (1.7-9.3); NEUTROPHILS # (AUTO) 18.6 K/uL (1.8-7.7); NEUTROPHILS % (AUTO) 93.9 % (40.0-70.0); PLATELET COUNT (AUTO) 81 K/uL (130-430); RED BLOOD CELL COUNT(AUTO) 3.53 MIL/uL (4.2-6.2); RED CELL DISTRIBUTION WIDTH 16.3 % (9.0-15.0); WHITE BLOOD COUNT (AUTO) 19.8 K/uL (4.8-10.8)
[2022-05-19 07:02] LABS: ALANINE AMINOTRANSFERASE 17 U/L (12-78); ALBUMIN 1.3 g/dL (3.4-4.8); ANION GAP 6 (5-15); ASPARTATE AMINOTRANSFERASE 30 U/L (10-37); CHLORIDE 98 mmol/L (98-107); CREATININE 3.62 mg/dL (0.55-1.30); GLUCOSE 160 mg/dL (70-99); POTASSIUM 3.3 mmol/L (3.5-5.1); TOTAL BILIRUBIN 0.5 mg/dL (0.0-1.0)
[2022-05-19 07:38] LABS: CALCIUM 5.8 mg/dL (8.4-11.0); UREA NITROGEN, BLOOD 102 mg/dL (8-21)
[2022-05-19] MEDS: LEVOTHYROXINE SODIUM 0.05 MG TABLET PO SCH (09:19)
[2022-05-19] MEDS: PHYTONADIONE 10 MG/ML AMP SUBCUT SCH (09:19)
[2022-05-19] MEDS: BRIMONIDINE TARTRATE 0.2% 5 mL EYE DROPS LEFT EYE SCH ×3 (09:21→20:20)
[2022-05-19] MEDS: DORZOLAMIDE 2% OPHTHALMIC SOLN 5ML OP SCH ×3 (09:23→20:19)
[2022-05-19] MEDS ORDERED: NACL 0.9% 1,000 ML IV SCH (09:30)
[2022-05-19] MEDS ORDERED: LORazepam 2 MG/ML VIAL IVP ONE (13:15)
[2022-05-19] MEDS: OCTREOTIDE ACETATE 500 MCG in NS 97.5 ML IV SCH (15:14)
--- NOTE | 2022-05-19 19:15 | NUR ---
Opening Notes: Received bedside report from Jeffrey. Patient opens eye spontaneously but does not follows commands. Responds to noxious stimuli. NG tube in left nare, feeding is being held due to EGD scheduled for tomorrow. Vent settings are AC 20, 60%, 400, 7. Kowalski catheter clean and draining to gravity; patient is anuric. Jeffrey informed me Dr. Retana placed a femoral HD catheter to start dialysis; dialysis nurse came and was unable to do dialysis due to the catheter failing. Jeffrey informed Saul Shipley and Dr. Lund was paged; Dr. Lund has not returned call as of yet. Patient has a NAMRATA 2 lumen with NS running at 3 ml/hr, Protonics at 10 ml/hr, and Sandostatin at 5 ml/hr. Patient is weeping all over and has contact dermitis in kiah area. Bed is at the lowest level, brakes are locked, suction working, 3 side rails up, and call light within reach.
[2022-05-19] MEDS: LATANOPROST 2.5 ML DROPS (XALATAN) LEFT EYE SCH (20:21)
[2022-05-20] VITALS (45 sets, daily range): BP systolic 84–164
[2022-05-20] MEDS: PANTOPRAZOLE SODIUM 40 MG in NS 50 ML IV SCH ×5 (03:22→23:50)
[2022-05-20] MEDS: METOCLOPRAMIDE HCL 10 MG/2 ML VIAL IVP SCH ×4 (05:30→23:50)
[2022-05-20] MEDS: MEROPENEM 500 MG in NS 50 ML IV SCH ×3 (05:31→22:12)
--- NOTE | 2022-05-20 06:55 | NUR ---
Called patient (Vinayak) and got consent for an EGD and A dialysis Catheter placement. Rupali was the second nurse to witness.
[2022-05-20 07:19] LABS: BASOPHILS % (AUTO) 0.2 % (0.0-2.0); EOSINOPHILS # (AUTO) 0.2 K/uL (0.0-0.4); EOSINOPHILS % (AUTO) 0.8 % (0.0-4.0); HEMATOCRIT 26.8 % (36-48); LYMPHOCYTES # (AUTO) 0.5 K/uL (1.0-5.5); LYMPHOCYTES % (AUTO) 2.7 % (20.5-51.5); MEAN CORPUSCULAR VOLUME 85 fL (79.0-98.0); MONOCYTES # (AUTO) 0.5 K/uL (0.0-1.0); MONOCYTES % (AUTO) 2.5 % (1.7-9.3); NEUTROPHILS # (AUTO) 18.6 K/uL (1.8-7.7); NEUTROPHILS % (AUTO) 93.8 % (40.0-70.0); PLATELET COUNT (AUTO) 77 K/uL (130-430); RED BLOOD CELL COUNT(AUTO) 3.17 MIL/uL (4.2-6.2); RED CELL DISTRIBUTION WIDTH 16.4 % (9.0-15.0); WHITE BLOOD COUNT (AUTO) 19.9 K/uL (4.8-10.8)
[2022-05-20 07:38] LABS: ALANINE AMINOTRANSFERASE 12 U/L (12-78); ALBUMIN 1.1 g/dL (3.4-4.8); ANION GAP 7 (5-15); ASPARTATE AMINOTRANSFERASE 33 U/L (10-37); CHLORIDE 99 mmol/L (98-107); CREATININE 4.13 mg/dL (0.55-1.30); GLUCOSE 112 mg/dL (70-99); TOTAL BILIRUBIN 0.5 mg/dL (0.0-1.0)
[2022-05-20] MEDS ORDERED: SIMETHICONE 40 MG/0.6 ML ML ONE (07:45)
[2022-05-20] MEDS: fentaNYL CITRATE/PF 100 MCG/2 ML AMP ONE ×2 (08:01→08:06)
[2022-05-20] MEDS: MIDAZOLAM HCL 5 MG/5 ML VIAL ONE ×3 (08:01→08:13)
[2022-05-20] MEDS ORDERED: EPINEPHrine JECT 0.1 MG/ML SYR ONE (08:41)
[2022-05-20] MEDS ORDERED: LEVOTHYROXINE SODIUM 0.2 MG VIAL IVP SCH (08:45)
[2022-05-20] MEDS ORDERED: *TPN PER PHARMACY XX PRN (08:45)
[2022-05-20 09:14] LABS: PHOSPHORUS 3.5 mg/dL (2.7-4.5)
[2022-05-20 09:16] LABS: CALCIUM 5.8 mg/dL (8.4-11.0); UREA NITROGEN, BLOOD 109 mg/dL (8-21)
[2022-05-20] MEDS ORDERED: NS 500 ML IV ONE (10:45)
[2022-05-20] MEDS ORDERED: ALBUMIN HUMAN 25% 200 ML IV ONE (11:05)
[2022-05-20] MEDS: OCTREOTIDE ACETATE 500 MCG in NS 97.5 ML IV SCH (11:11)
[2022-05-20] MEDS: BRIMONIDINE TARTRATE 0.2% 5 mL EYE DROPS LEFT EYE SCH ×3 (11:36→20:43)
[2022-05-20] MEDS: DORZOLAMIDE 2% OPHTHALMIC SOLN 5ML OP SCH ×3 (11:36→20:45)
[2022-05-20] MEDS: ALBUMIN HUMAN 25% 50 ML IV SCH ×3 (12:15→23:02)
[2022-05-20] MEDS: LORazepam 2 MG/ML VIAL IVP PRN (12:24)
--- NOTE | 2022-05-20 16:00 | NUR ---
Nutrition F/U Admitting Diagnosis Upper GI bleed, acute renal failure, anemia Reviewed Pertinent Medical/Surgical Hx Medical Record ICU Rounds server assistant Medical History Comment: Per EMR: 77 YOF with PMH HTN who presented to ED form [facility] with coffee ground emesis. After assessment, patient noted with upper GI bleed, dehydration, sepsis, acute renal failure, anemia, severe PEM, and L-sided weakness at baseline. Patient found with distended abdomen and large black stool first noted 05/12; s/p EGD 05/13: results showed stomach ulcer and patient's entire stomach full of blood. 05/15: patient coded and intubated. Per notes, MD wants to wait for H/H to increase before Sx. Subjective Information: TPN per pharmacy notification received 05/20/[address] attended ICU rounds this morning. Primary RN was busy caring for another pt to provide report. server assistant reported that pt had an EGD scheduled for this morning. Placement of HD access was done recently; plan for HD today; continues intubated on vent; protonix drip; PICC/FC present. RD witnessed TF not infusing, pump and TF formula seen outside of pt's room -- active TF order still in place. Observed canister of bloody output in pt's room. Per EMR review, pt's repeat EGD this morning revealed multiple gastric ulcers and active bleeding; HD today; NGT is out to prevent any irritation and rebleeding. Plan for TPN support is warranted. Current Diet Order/Nutrition Support: Nepro at 40 ml/hr via NGT x2 days Patient/Significant Other Unable To Verbalize Education Provided Not Indicated Pertinent Medications: IV ALB, SSI, reglan, lopressor Pertinent Labs: Reviewed Height (Feet) 5 feet Height (Inches) 0.00 inches Weight (Pounds) 120 pounds -- stable since 05/17 Patient Weight 54.431 kg Body Mass Index 23.43 kg/m2 %IBW 120 [place]/Adjusted Body Weight 100lbs/ 45.5kg Weight Status Appropriate Gastrointestinal Symptoms Bleeding Last BM 05/20 Skin Integrity Comment: Refugio: 9; no PIs/wounds noted/BLE and BUE 4+ pitting edema noted per EMR review Current % PO 0% - NPO Estimated Energy Expenditure (kcals/day) 6851-1752 (30-35 kcal/kg d/t critically ill, vent) Estimated Protein Required (g/day) 54-65 (1-1.2 g/kg d/t critically ill, vent, acute renal failure) Estimated Fluid Required (l/day) per MD (d/t acute renal failure) Problem/Etiology/Signs/Symptoms * Altered GI function r/t gastric ulcer a/e/b anemia, distended abdomen, black stool, coffee ground emesis, stomach filled with blood. *Ongoing * Excessive nutrient intake r/t EN + PPN a/e/b EN + PPN exceeds daily nutritional goals. *Not applicable at this time Expected Outcomes/Goals Nutrition support provides >85% estimated nutrient needs, tolerate EN/PN at goal, wt maintenance, skin integrity, improvements in GI function Dietitian Recommendations * TPN D50%, AA8.5% at 60 ml/hr (goal rate), IL20% at 5 ml/hr via central line Provides: 1709 kcal/day, 61 gm protein/day, 1560 ml total volume/day, and GIR: 4.6 mg CHO/kg/min Meets: 90% of upper end of estimated caloric needs and 94% of upper end of estimated protein needs Follow Up High Risk: F/U in 2-3 days
--- NOTE | 2022-05-20 16:10 | NUR ---
Dietitian Recommendations * TPN D50%, AA8.5% at 60 ml/hr (goal rate), IL20% at 5 ml/hr via central line Provides: 1709 kcal/day, 61 gm protein/day, 1560 ml total volume/day, and GIR: 4.6 mg CHO/kg/min Meets: 90% of upper end of estimated caloric needs and 94% of upper end of estimated protein needs LP, MS, RD Please refer to Nutrition F/U for details.
[2022-05-20] MEDS ORDERED: IPRATROPIUM/ALBUTEROL SULFATE 3 ML AMPUL.NEB (DUONEB) INH PRN (16:30)
[2022-05-20] MEDS: IPRATROPIUM/ALBUTEROL SULFATE 3 ML AMPUL.NEB (DUONEB) INH SCH ×2 (19:37→23:01)
[2022-05-20] MEDS: LATANOPROST 2.5 ML DROPS (XALATAN) LEFT EYE SCH (20:44)
[2022-05-20] MEDS ORDERED: TPN CENTRAL IV SCH ×10 (21:00)
[2022-05-20] MEDS ORDERED: K PHOS IV SCH ×10 (21:00)
[2022-05-20] MEDS ORDERED: [UNRECOGNIZED DRUG - OTHER] IV SCH ×10 (21:00)
[2022-05-20] MEDS ORDERED: POTASSIUM CHLORIDE IV SCH ×10 (21:00)
[2022-05-20] MEDS ORDERED: CALCIUM CHLORIDE IV SCH ×10 (21:00)
[2022-05-21] VITALS (30 sets, daily range): BP systolic 93–175
[2022-05-21 01:48] LABS: INR 1.3 (0.8-1.2); PROTHROMBIN TIME 12.8 SECS (9.5-12.5)
[2022-05-21] MEDS: IPRATROPIUM/ALBUTEROL SULFATE 3 ML AMPUL.NEB (DUONEB) INH SCH ×6 (03:08→23:34)
[2022-05-21] MEDS: PANTOPRAZOLE SODIUM 40 MG in NS 50 ML IV SCH ×4 (04:44→20:25)
[2022-05-21] MEDS: OCTREOTIDE ACETATE 500 MCG in NS 97.5 ML IV SCH ×2 (04:44→11:26)
[2022-05-21] MEDS: MEROPENEM 500 MG in NS 50 ML IV SCH ×3 (05:41→22:02)
[2022-05-21] MEDS: METOCLOPRAMIDE HCL 10 MG/2 ML VIAL IVP SCH ×3 (05:41→18:37)
[2022-05-21 07:06] LABS: EOSINOPHILS # (AUTO) 0.1 K/uL (0.0-0.4)
--- NOTE | 2022-05-21 07:29 | NUR ---
RT NOTES FIO2 to 0.40. Will monitor pt.
[2022-05-21 07:54] LABS: ALANINE AMINOTRANSFERASE 35 U/L (12-78); ALBUMIN 2.3 g/dL (3.4-4.8); ANION GAP 11 (5-15); ASPARTATE AMINOTRANSFERASE 69 U/L (10-37); CHLORIDE 101 mmol/L (98-107); CREATININE 3.21 mg/dL (0.55-1.30); GLUCOSE 103 mg/dL (70-99); PHOSPHORUS 2.9 mg/dL (2.7-4.5); TOTAL BILIRUBIN 0.7 mg/dL (0.0-1.0); UREA NITROGEN, BLOOD 77 mg/dL (8-21)
[2022-05-21 08:05] LABS: BASOPHILS % (AUTO) 0.2 % (0.0-2.0); EOSINOPHILS % (AUTO) 0.8 % (0.0-4.0); LYMPHOCYTES # (AUTO) 0.6 K/uL (1.0-5.5); LYMPHOCYTES % (AUTO) 3.6 % (20.5-51.5); MEAN CORPUSCULAR VOLUME 85 fL (79.0-98.0); MONOCYTES # (AUTO) 0.6 K/uL (0.0-1.0); MONOCYTES % (AUTO) 3.9 % (1.7-9.3); NEUTROPHILS # (AUTO) 14.6 K/uL (1.8-7.7); NEUTROPHILS % (AUTO) 91.5 % (40.0-70.0); PLATELET COUNT (AUTO) 93 K/uL (130-430); RED BLOOD CELL COUNT(AUTO) 2.37 MIL/uL (4.2-6.2); RED CELL DISTRIBUTION WIDTH 16.3 % (9.0-15.0); WHITE BLOOD COUNT (AUTO) 15.9 K/uL (4.8-10.8)
[2022-05-21 08:58] LABS: CALCIUM 6.9 mg/dL (8.4-11.0)
[2022-05-21] MEDS ORDERED: D5/0.45 NS 1,000 ML IV SCH (09:00)
[2022-05-21 09:09] LABS: HEMATOCRIT 20.1 % (36-48)
[2022-05-21] MEDS: LEVOTHYROXINE SODIUM 0.1 MG VIAL IVP SCH (09:24)
[2022-05-21] MEDS: BRIMONIDINE TARTRATE 0.2% 5 mL EYE DROPS LEFT EYE SCH ×3 (09:25→20:26)
[2022-05-21] MEDS: DORZOLAMIDE 2% OPHTHALMIC SOLN 5ML OP SCH ×3 (09:26→20:26)
[2022-05-21] MEDS ORDERED: NS 500 ML IV ONE (09:30)
--- NOTE | 2022-05-21 11:15 | NUR ---
DR. STEWART AT BEDSIDE AND STATED HE WOULD LIKE [facility] FOR PROCEDURE. HE STATED HE HAS MADE DR. ANDERSON AWARE.
--- NOTE | 2022-05-21 11:55 | NUR ---
DR. HARRELL AT BEDSIDE SPEAKING TO PT'S . MADE BOTH DR. HARRELL AND PT'S AWARE THAT DR. STEWART WOULD LIKE PT TO TRANSFER TO [facility]. BOTH AGREED WITH POC.
--- NOTE | 2022-05-21 12:35 | NUR ---
RECEIVED ORDER FROM DR. ANDERSON TO REQUEST PT TO TRANSFER TO [facility] FOR INTERVENTIONAL RADIOLOGY EVALUATION OF BLEEDING AND EMBOLUS IN THE GI TRACT PER DR. STEWART. CHILD CARE AIDE MADE AWARE, SHE STATED SHE WILL CALL DR. ANDERSON TO CLARIFY ORDER. Addendum: 05/21/22 at 1256 by [facility], SHANAE JOLLY CHILD CARE AIDE WHO WAS COMMUNICATED TO IS WEI.
--- NOTE | 2022-05-21 13:00 | NUR ---
pt receiving hd at this time.
--- NOTE | 2022-05-21 14:15 | NUR ---
ONE UNIT PRBC BEING TRANSFUSED AT THIS TIME BY HD NURSE SHANAE ALMONTE.
--- NOTE | 2022-05-21 14:34 | NUR ---
DR STEWART STATED TO GIVE THE BLOOD IN THIS ORDER: 2 UNITS PRBC'S FFP PLATELETS
--- NOTE | 2022-05-21 14:54 | NUR ---
JARROD SPEECH THERAPY ([phone]) MADE AWARE PT HAS ORDER FOR SPEECH EVAL. SHE STATED DINAH SHOULD BE AT THE FACILITY SOMETIME TODAY.
--- NOTE | 2022-05-21 15:56 | NUR ---
CM: late entry: faxed the FS to Christiana/admitting dept at [facility]. Per Christiana the radiology is closed during weekend. Dr Sanford is to make appointment and speak with the radiologist on Monday. I notified , stated the pt is not stable for transfer and likely to arrange the transfer on Monday. The pt is receiving the HD today, severe anemia HH 6.9 hct 20.2 and schedule for blood transfusion 2 u PRBC, 1 unit FFP 1 unit platelet respectively. MATA Tabares made aware.
--- NOTE | 2022-05-21 16:00 | NUR ---
PAGED DR BRIONES TO ADVISE MDRO/ESBL IN THE SPUTUM AND KLEBSIELLA
--- NOTE | 2022-05-21 16:15 | NUR ---
ONE UNIT PLTS AND ONE UNIT FFP CANCELED BY DR. ANDERSON. SECOND UNIT OF PRBC GIVEN AT THIS TIME.
--- NOTE | 2022-05-21 16:44 | NUR ---
GENARO FROM [facility] CALLED AND STATED PT HAS BED, PT WILL GO TO ROOM 7312, REPORT TO BE CALLED TO [phone], PT TO BE FOLLOWED BY DR. PEPE RANKIN. DR. CARDONA CALLED [place] AT [facility] AND STATED PT IS OKAY TO TRANSFER. THIS NURSE CALLED SHANAE FIGUEROA AT [facility] AND GAVE HER PT'S TRANSFER INFO. SHE STATED SHE WILL CALL BACK WITH PT'S TRANSFER TIME. Addendum: 05/21/22 at 1649 by [facility], SHANAE JOLLY CANCEL NOTE, WRONG PT.
--- NOTE | 2022-05-21 19:00 | NUR ---
ENDORSED CALL CARE TO NOC SHIFT RN. ALL QUESTIONS AND CONCERNS ADDRESSED.
--- NOTE | 2022-05-21 19:05 | NUR ---
Opening Notes; Received bedside report from Raysa. Patient opens eye spontaneously but does not follows commands. Responds to noxious stimuli. Vent settings are AC/PC 20, 60%, 400, 7. Kowalski catheter clean and draining to gravity; patient is anuric. Patient has a NAMRATA 2 lumen with Protonics at 10 ml/hr, and Sandostatin at 5 ml/hr, and TPN running at 42 ml/hr; patient also has a left femoral dialysis catheter. Patient had dialysis today with 2 liters out. Patient is weeping all over and has contact dermitis in kiah area. Bed is at the lowest level, brakes are locked, suction working, 3 side rails up, and call light within reach.
--- NOTE | 2022-05-21 19:25 | NUR ---
DR BRIONES RETURNED CALL. AWARE OF NEW FINDINGS IN SPUTUM, ORDERS ALREADY INPUTTED BY
[2022-05-21] MEDS: LATANOPROST 2.5 ML DROPS (XALATAN) LEFT EYE SCH (20:26)
--- NOTE | 2022-05-21 20:30 | NUR ---
STARTED TPN AND INFORMED BY KRISTEL (CHARGE NURSE) TO DC D5 1/2 NS.
--- NOTE | 2022-05-21 20:50 | NUR ---
PAGED DR LAVARENGA
[2022-05-21] MEDS ORDERED: SODIUM ACETATE IV SCH ×10 (21:00)
[2022-05-21] MEDS ORDERED: [UNRECOGNIZED DRUG - OTHER] IV SCH ×10 (21:00)
[2022-05-21] MEDS ORDERED: TPN CENTRAL IV SCH ×10 (21:00)
[2022-05-21] MEDS ORDERED: POTASSIUM CHLORIDE IV SCH ×10 (21:00)
--- NOTE | 2022-05-21 21:00 | NUR ---
DR ALVARENGA CALLED, ORDERS GIVEN.
[2022-05-22] VITALS (31 sets, daily range): BP systolic 87–180
[2022-05-22] MEDS: METOCLOPRAMIDE HCL 10 MG/2 ML VIAL IVP SCH ×4 (00:42→19:04)
[2022-05-22] MEDS: INSULIN REGULAR, HUMAN 100 UNITS/ML, 3 ML VIAL (humuLIN R) SUBCUT PRN ×4 (00:45→19:07)
[2022-05-22] MEDS: PANTOPRAZOLE SODIUM 40 MG in NS 50 ML IV SCH ×5 (00:48→20:13)
[2022-05-22] MEDS: MEROPENEM 500 MG in NS 50 ML IV SCH ×3 (05:35→21:12)
[2022-05-22 07:22] LABS: HEMATOCRIT 32.1 % (36-48); PLATELET COUNT (AUTO) 135 K/uL (130-430); RED BLOOD CELL COUNT(AUTO) 3.72 MIL/uL (4.2-6.2); RED CELL DISTRIBUTION WIDTH 15.9 % (9.0-15.0); WHITE BLOOD COUNT (AUTO) 14.9 K/uL (4.8-10.8)
[2022-05-22] MEDS: IPRATROPIUM/ALBUTEROL SULFATE 3 ML AMPUL.NEB (DUONEB) INH SCH ×5 (07:25→23:15)
[2022-05-22 07:55] LABS: ALANINE AMINOTRANSFERASE 22 U/L (12-78); ALBUMIN 1.8 g/dL (3.4-4.8); ANION GAP 9 (5-15); ASPARTATE AMINOTRANSFERASE 38 U/L (10-37); CHLORIDE 102 mmol/L (98-107); GLUCOSE 194 mg/dL (70-99); PHOSPHORUS 2.5 mg/dL (2.7-4.5); POTASSIUM 3.8 mmol/L (3.5-5.1); TOTAL BILIRUBIN 0.6 mg/dL (0.0-1.0); UREA NITROGEN, BLOOD 54 mg/dL (8-21)
[2022-05-22] MEDS: BRIMONIDINE TARTRATE 0.2% 5 mL EYE DROPS LEFT EYE SCH ×3 (08:24→20:14)
[2022-05-22] MEDS: LEVOTHYROXINE SODIUM 0.1 MG VIAL IVP SCH (08:25)
[2022-05-22] MEDS: DORZOLAMIDE 2% OPHTHALMIC SOLN 5ML OP SCH ×3 (08:25→20:14)
[2022-05-22 08:54] LABS: MEAN CORPUSCULAR VOLUME 87 fL (79.0-98.0)
[2022-05-22 10:05] LABS: CALCIUM 6.8 mg/dL (8.4-11.0)
[2022-05-22 14:09] LABS: INR 1.1 (0.8-1.2); PROTHROMBIN TIME 11.6 SECS (9.5-12.5)
[2022-05-22 14:52] LABS: BAND % (MANUAL) 8 % (0-6); BASOPHILS % (MANUAL) 0 % (0-2); EOSINOPHILS % (MANUAL) 1 % (0-7); LYMPHOCYTES % (MANUAL) 7 % (20-46); METAMYELOCYTES % 4 % (0-0); MONOCYTES % (MANUAL) 2 % (0-11)
[2022-05-22] MEDS: OCTREOTIDE ACETATE 500 MCG in NS 97.5 ML IV SCH (20:13)
[2022-05-22] MEDS: LATANOPROST 2.5 ML DROPS (XALATAN) LEFT EYE SCH (20:14)
[2022-05-22] MEDS ORDERED: TPN CENTRAL IV SCH ×10 (21:00)
[2022-05-22] MEDS ORDERED: [UNRECOGNIZED DRUG - OTHER] IV SCH ×10 (21:00)
[2022-05-22] MEDS ORDERED: SODIUM ACETATE IV SCH ×10 (21:00)
[2022-05-22] MEDS ORDERED: POTASSIUM CHLORIDE IV SCH ×10 (21:00)
--- NOTE | 2022-05-22 23:00 | NUR ---
REPORT WAS GIVEN TO RC JOLLY AT 2300.
[2022-05-23] VITALS (38 sets, daily range): BP systolic 90–157
[2022-05-23] MEDS: INSULIN REGULAR, HUMAN 100 UNITS/ML, 3 ML VIAL (humuLIN R) SUBCUT PRN ×4 (01:18→18:14)
[2022-05-23] MEDS: METOCLOPRAMIDE HCL 10 MG/2 ML VIAL IVP SCH ×5 (01:20→23:52)
[2022-05-23] MEDS: IPRATROPIUM/ALBUTEROL SULFATE 3 ML AMPUL.NEB (DUONEB) INH SCH ×5 (03:00→23:32)
[2022-05-23] MEDS: MEROPENEM 500 MG in NS 50 ML IV SCH ×4 (06:00→23:30)
[2022-05-23] MEDS: PANTOPRAZOLE SODIUM 40 MG in NS 50 ML IV SCH ×5 (06:31→22:00)
--- NOTE | 2022-05-23 08:03 | NUR ---
PATIENT STABLE, ENDORSED
[2022-05-23] MEDS: LEVOTHYROXINE SODIUM 0.1 MG VIAL IVP SCH (08:17)
[2022-05-23] MEDS: DORZOLAMIDE 2% OPHTHALMIC SOLN 5ML OP SCH ×3 (08:18→21:09)
[2022-05-23] MEDS: BRIMONIDINE TARTRATE 0.2% 5 mL EYE DROPS LEFT EYE SCH ×3 (08:18→21:07)
[2022-05-23 08:26] LABS: ALANINE AMINOTRANSFERASE 12 U/L (12-78); ALBUMIN 1.3 g/dL (3.4-4.8); ANION GAP 7 (5-15); ASPARTATE AMINOTRANSFERASE 22 U/L (10-37); CHLORIDE 103 mmol/L (98-107); CREATININE 3.28 mg/dL (0.55-1.30); GLUCOSE 171 mg/dL (70-99); PHOSPHORUS 3.3 mg/dL (2.7-4.5); POTASSIUM 4.2 mmol/L (3.5-5.1); TOTAL BILIRUBIN 0.5 mg/dL (0.0-1.0); UREA NITROGEN, BLOOD 73 mg/dL (8-21)
[2022-05-23] MEDS ORDERED: ALBUMIN HUMAN 25% 200 ML IV ONE ×2 (08:53→10:45)
[2022-05-23 08:56] LABS: CALCIUM 6.7 mg/dL (8.4-11.0)
[2022-05-23 12:16] LABS: BASOPHILS % (AUTO) 0.3 % (0.0-2.0); EOSINOPHILS % (AUTO) 0.2 % (0.0-4.0); LYMPHOCYTES # (AUTO) 0.9 K/uL (1.0-5.5); LYMPHOCYTES % (AUTO) 5.8 % (20.5-51.5); MEAN CORPUSCULAR VOLUME 88 fL (79.0-98.0); MONOCYTES # (AUTO) 0.9 K/uL (0.0-1.0); MONOCYTES % (AUTO) 5.7 % (1.7-9.3); NEUTROPHILS # (AUTO) 13.9 K/uL (1.8-7.7); PLATELET COUNT (AUTO) 198 K/uL (130-430); RED BLOOD CELL COUNT(AUTO) 2.08 MIL/uL (4.2-6.2); WHITE BLOOD COUNT (AUTO) 15.8 K/uL (4.8-10.8)
[2022-05-23 13:10] LABS: HEMATOCRIT 18.3 % (36-48)
--- NOTE | 2022-05-23 13:56 | NUR ---
Spoke w/ Dr Wyatt at [facility]. He stated, he will schedule CTA of the Abd for the patient when he has an order for the procedure. I sent an order to ext [phone] at [facility]. The procedure is scheduled for 2 PM 05/24- I spoke to Christiana in admitting at [facility], they will work on a bed for the patient in ICU at [facility] Addendum: 05/23/22 at 1410 by Erinn Aguiar DP DCP arranged transport with [facility] with RT 32% O2 with 2 drips to [facility] pending bed.
--- NOTE | 2022-05-23 14:15 | NUR ---
BLOOD BANK BROUGHT TRANSFUSION REQUESTS AND HANDED TO NIESHA. A CALL RECEIVED FROM DR STEWART, HE'S AWARE OF HEMOGLOBIN 6.1, HEMATOCRIT 18.3. HE DID NOT WANT TRANSFUSION. SPOKE TO NIESHA OF BLOOD BANK TO CANCEL THE ORDER.
--- NOTE | 2022-05-23 14:18 | NUR ---
Notified MD Sanford of 2 units PRBC ordered per standing orders/communication for Hgb=6.1 and Hct=18.3. Orders received from MD Sanford to discontinue transfusion of 2 units of PRBC due to imminent transfer of patient to outside facility for alternate level of care. MD Sanford stated that the needed blood products will be transfused at the outside facility, [facility], once the patient arrives there. MD Sanford also noted that he has physician privileges there and will resume all care/interventions there once the patient arrives. Continue to monitor.
[2022-05-23] MEDS: OCTREOTIDE ACETATE 500 MCG in NS 97.5 ML IV SCH (17:00)
--- NOTE | 2022-05-23 19:00 | NUR ---
Received pt in bed ventilated open eyes but elliott not respond to command .TPN running via Right PICC Line @50 ml/h with other infusions . Blood transfusion is over vitals done
[2022-05-23] MEDS: SODIUM ACETATE IV SCH ×10 (21:00)
[2022-05-23] MEDS: NA PHOS IV SCH ×10 (21:00)
[2022-05-23] MEDS: [UNRECOGNIZED DRUG - OTHER] IV SCH ×10 (21:00)
[2022-05-23] MEDS: TPN CENTRAL IV SCH ×10 (21:00)
[2022-05-23] MEDS: LATANOPROST 2.5 ML DROPS (XALATAN) LEFT EYE SCH (21:08)
[2022-05-24] VITALS (7 sets, daily range): BP systolic 145–168
--- NOTE | 2022-05-24 | NUR ---
Follow up -awaits transport to [facility]
[2022-05-24] MEDS: TPN CENTRAL IV SCH ×10 (01:11)
[2022-05-24] MEDS: NA PHOS IV SCH ×10 (01:11)
[2022-05-24] MEDS: [UNRECOGNIZED DRUG - OTHER] IV SCH ×10 (01:11)
[2022-05-24] MEDS: SODIUM ACETATE IV SCH ×10 (01:11)
[2022-05-24] MEDS: PANTOPRAZOLE SODIUM 40 MG in NS 50 ML IV SCH (03:37)
[2022-05-24] MEDS: OCTREOTIDE ACETATE 500 MCG in NS 97.5 ML IV SCH (03:49)
--- NOTE | 2022-05-24 04:30 | NUR ---
[facility] .VITALS DONE AND UPDATED .REPORT GIVEN TO SAROJ JOLLY
[2022-06-06 15:09] LABS: HEMOGLOBIN 12.2 g/dL (12.0-16.0)
[2022-06-07 14:35] LABS: HEMOGLOBIN 10.1 g/dL (12.0-16.0)
== END 2022-05-24 18:00 | disposition short-term general hospital (02) | DRG 870 ==
LOC: SED 17:09 → SIC 20:20
PROVIDERS: ADMIT Family Medicine; ATTEND Family Medicine
PROC: 0DJ08ZZ Inspection of Upper Intestinal Tract, Via Natural or Artificial Opening Endoscopic (ICD-10-PCS; 2022-05-13)
PROC: 02HV33Z Insertion of Infusion Device into Superior Vena Cava, Percutaneous Approach (ICD-10-PCS; 2022-05-14)
PROC: B548ZZA Ultrasonography of Superior Vena Cava, Guidance (ICD-10-PCS; 2022-05-14)
PROC: 5A12012 Performance of Cardiac Output, Single, Manual (ICD-10-PCS; 2022-05-15)
PROC: 0DJ08ZZ Inspection of Upper Intestinal Tract, Via Natural or Artificial Opening Endoscopic (ICD-10-PCS; 2022-05-15)
PROC: 30233N1 Transfusion of Nonautologous Red Blood Cells into Peripheral Vein, Percutaneous Approach (ICD-10-PCS; 2022-05-15)
PROC: 0BH17EZ Insertion of Endotracheal Airway into Trachea, Via Natural or Artificial Opening (ICD-10-PCS; 2022-05-15)
PROC: 5A1955Z Respiratory Ventilation, Greater than 96 Consecutive Hours (ICD-10-PCS; principal; 2022-05-15 07:30)
PROC: 30233K1 Transfusion of Nonautologous Frozen Plasma into Peripheral Vein, Percutaneous Approach (ICD-10-PCS; 2022-05-16)
PROC: 30233R1 Transfusion of Nonautologous Platelets into Peripheral Vein, Percutaneous Approach (ICD-10-PCS; 2022-05-17)
PROC: 06HY33Z Insertion of Infusion Device into Lower Vein, Percutaneous Approach (ICD-10-PCS; 2022-05-19)
PROC: B54BZZA Ultrasonography of Right Lower Extremity Veins, Guidance (ICD-10-PCS; 2022-05-19)
PROC: 0W3P8ZZ Control Bleeding in Gastrointestinal Tract, Via Natural or Artificial Opening Endoscopic (ICD-10-PCS; 2022-05-20)
DX: A41.9 Sepsis, unspecified organism (principal); E43 Unspecified severe protein-calorie malnutrition; D65 Disseminated intravascular coagulation [defibrination syndrome]; I46.9 Cardiac arrest, cause unspecified; K21.01 Gastro-esophageal reflux disease with esophagitis, with bleeding; R57.1 Hypovolemic shock; J96.90 Respiratory failure, unspecified, unspecified whether with hypoxia or hypercapnia; K22.11 Ulcer of esophagus with bleeding; J69.0 Pneumonitis due to inhalation of food and vomit; K92.2 Gastrointestinal hemorrhage, unspecified; N17.9 Acute kidney failure, unspecified; C16.1 Malignant neoplasm of fundus of stomach; D62 Acute posthemorrhagic anemia; N39.0 Urinary tract infection, site not specified; E03.9 Hypothyroidism, unspecified; E86.0 Dehydration; G80.9 Cerebral palsy, unspecified; N18.9 Chronic kidney disease, unspecified; K44.9 Diaphragmatic hernia without obstruction or gangrene; Z20.822 Contact with and (suspected) exposure to COVID-19; M19.90 Unspecified osteoarthritis, unspecified site; I12.9 Hypertensive chronic kidney disease with stage 1 through stage 4 chronic kidney disease, or unspecified chronic kidney disease; Z86.73 Personal history of transient ischemic attack (TIA), and cerebral infarction without residual deficits; Z74.01 Bed confinement status; Z79.82 Long term (current) use of aspirin; Z79.899 Other long term (current) drug therapy; Z86.2 Personal history of diseases of the blood and blood-forming organs and certain disorders involving the immune mechanism; Z90.3 Acquired absence of stomach [part of]
CPT/HCPCS: 36415; 36430; 36600; 43235; 43255; 70450-TC; 71045; 74018; 76376; 80048; 80053; 81000; 82803-TC; 82962; 83605; 83690; 83735; 83880; 84100; 84311; 84443; 84478; 84484; 85007; 85018; 85025; 85027; 85049-TC; 85384; 85610-TC; 85730-TC; 86886; 86900; 86901; 86920; 87040; 87070-TC; 87081; 87086; 87205-TC; 90935; 90937; 92950; 93005; 93306; 94002; 94003; 94640; 96365; 96368; 99291; C1751; C9113; J0171; J0610; J0692; J0696; J1815; J1940; J2060; J2175; J2185; J2250; J2270; J2354; J2370; J2543; J2597; J2765; J3010; J3430; J3475; J3480; J3490; J7030; J7040; J7042; J7050; J7060; J7131; P9021; P9034; P9046; P9059; Q9964